=== PATIENT | male | born 2000 | race Caucasian/White ===

== ENCOUNTER 2020-02-27 10:33 | Emergency (ER) | payer MEDICAID ==
[~2020-02-27] VITALS: Ht 177.8 cm; Wt 68.0 kg
[2020-02-27 10:36] VITALS: BP 134/95
[2020-02-27] MEDS ORDERED: FAMOTIDINE20 MG ORAL (10:49)
[2020-02-27] MEDS ORDERED: BENADRYL25 M3 PO (10:49)
[2020-02-27] MEDS ORDERED: PREDNISONE20 MG ORAL (10:49)
--- NOTE | 2020-02-27 10:54 | Emergency Room Report ---
History of Present Illness General Chief Complaint: Skin Rash/Abscess Source: Patient Present Illness HPI Patient is a 20-year-old male denies any significant past medical history presents to the ER complaining of an itchy rash that began yesterday. Patient states that it started along his abdomen and has spread to his back and arms. He denies any fever or chills. He denies any chest pain or shortness of breath. He denies any intraoral swelling or drooling. He states that he has not used any new medications, lotions, creams etc. No history of allergic reaction in the past. Allergies: Coded Allergies: No Known Allergies (Unverified , 02/27/20) COVID-19 Screening Contact w/high risk pt: No Experienced COVID-19 symptoms?: No COVID-19 Testing performed TOYS INSPECTOR: No Patient History Reviewed Nursing Documentation: PMH: Agreed; PSxH: Agreed Nursing Documentation-PM Past Medical History: No Stated History Review of Systems All Other Systems: negative except mentioned in HPI Physical Exam Vital Signs Date Time Temp Pulse Resp B/P (MAP) Pulse Ox O2 Delivery O2 Flow Rate FiO2 02/27/20 10:36 98.1 88 19 134/95 100 Room Air Sp02 EP Interpretation: reviewed, normal General Appearance: no apparent distress, alert, GCS 15, non-toxic Head: normocephalic, atraumatic Eyes: bilateral eye normal inspection, bilateral eye PERRL ENT: hearing grossly normal, normal pharynx, no angioedema, normal voice Neck: full range of motion, supple/symm/no masses Respiratory: chest non-tender, lungs clear, normal breath sounds, speaking full sentences Cardiovascular #1: regular rate, rhythm, no edema Gastrointestinal: normal bowel sounds, non tender, soft, non-distended, no guarding, no rebound Rectal: deferred Musculoskeletal: normal range of motion Neurologic: osteopathic physician III-XII nml as tested, oriented x3 Psychiatric: no suicidal/homicidal ideation Skin: other - Diffuse urticarial rash to abdomen back and bilateral upper extremities sparing palms Lymphatic: no adenopathy Medical Decision Making Diagnostic Impression: Primary Impression: Hives Additional Impression: Allergic reaction ER Course Patient given prednisone, Pepcid and Benadryl. Advised to follow-up with an boiling off winder after obtaining referral from his primary care doctor. After discussing risks and benefits of further diagnostics, treatment plans, as well as indications for and risks of admission, the patient is agreeable to being discharged home. I have explained that their evaluation and treatment in the emergency department today is an important step towards them achieving better health but that their evaluation today is not intended to replace further evaluation and treatment by a physician in their local clinic. I have explained that while the current findings suggest no immediate life threatening emergency they will require further evaluation and treatment by a physician of their choice in their area. They understand that it will be necessary for them to review the final reports of their ED visit with their clinic physician. We have reviewed indications for return to the Emergency Department. I have explained that additional time may need to pass and/or additional testing as an outpatient may be necessary before a definitive diagnosis can be made. They tell me they are willing to follow up as instructed within the timeframe I recommend. They appear to understand what we discussed. Additionally they understand that if they are unable to be seen by an outpatient physician they are welcome, and in fact should, return to the Emergency Department for a repeat evaluation. The patient is stable at time of discharge. Last Vital Signs Date Time Temp Pulse Resp B/P (MAP) Pulse Ox O2 Delivery O2 Flow Rate FiO2 02/27/20 10:36 98.1 88 19 134/95 (108) 100 Room Air Disposition: HOME, SELF-CARE Condition: Stable Scripts Prednisone* (PREDNISONE*) 20 Mg Tablet 40 MG ORAL DAILY, #5 TAB Prov: Ashlee Mccabe M.D. 02/27/20 Diphenhydramine HCl (Benadryl) 25 Mg Capsule 25 MG PO TID, #20 CAP Prov: Ashlee Mccabe M.D. 02/27/20 Famotidine* (Pepcid 20mg tablet*) 20 Mg Tablet 20 MG ORAL TWICE A DAY for Gerd, #14 TAB 0 Refills Prov: Ashlee Mccabe M.D. 02/27/20 Referrals: [facility] Patient Instructions: Christi, [id number] Additional Instructions: Please ask your primary care physician to refer you to an boiling off winder for allergy skin testing. The patient was provided with discharge instructions, notified to follow-up with a primary care doctor and or specialist in the next 24-48 hours, and to return to the ED if they have worsening of their symptoms. Please note that this report is being documented using [employer] technology. This can lead to erroneous entry secondary to incorrect interpretation by the dictating instrument. Ashlee Mccabe M.D. Feb 27, 2020 10:54
[2020-02-27 10:58] VITALS: BP 129/88
== END 2020-02-27 11:00 | disposition home or self-care (01) ==
LOC: EMR 10:47
DX: T78.40XA Allergy, unspecified, initial encounter (principal); L50.0 Allergic urticaria; X58.XXXA Exposure to other specified factors, initial encounter
CPT/HCPCS: J7512; Z7502; 99282